=== PATIENT | female | born 1950 | race Two or more races ===

== ENCOUNTER 2019-02-18 07:11 | Day surgery (SDC) | payer OTHER ==
[~2019-02-18 07:11] MED LIST: APRESOLINE 10MG10 MG PO; ASA81 MG PO; FOSINOPRIL SODI20 MG PO; GLIPIZIDE5 MG PO; LIPITOR40 MG PO
== END 2019-02-18 16:10 | disposition home or self-care (01) ==
LOC: CIR.AMB 07:11
DX: G56.01 Carpal tunnel syndrome, right upper limb (principal); M65.341 Trigger finger, right ring finger; M65.311 Trigger thumb, right thumb